=== PATIENT | male | born 1980 | race Caucasian/White ===

== ENCOUNTER 2018-06-16 18:09 | Emergency (ER) | payer OTHER ==
[2018-06-16 18:22] VITALS: RESP 16; TEMP 98.2
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
[2018-06-16 20:22] VITALS: BP 135/85; PULSE 78; O2SAT 98
--- NOTE | 2018-06-17 11:02 | RAD ---
Date of service: 06/16/2018 PROCEDURE: Cervical Spine Radiographs. HISTORY: Pain. COMPARISON: None. FINDINGS: BONES: There is normal alignment of the cervical vertebral bodies. There is straightening of the cervical spine with loss of normal cervical lordosis. Vertebral height is normal. Bone mineralization is normal. There is no acute fracture or traumatic anterior listhesis. The craniocervical junction is normal. The atlantoaxial joint normal. DISC SPACES: Normal. SOFT TISSUES: Normal. No prevertebral soft tissue swelling. OTHER FINDINGS: None. IMPRESSION: No acute fracture or traumatic anterior listhesis. Straightening of the cervical spine may be positional or related to muscle spasm.
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
== END 2018-06-16 20:21 | disposition home or self-care (01) ==
LOC: C.ER 18:09
DX: S16.1XXA Strain of muscle, fascia and tendon at neck level, initial encounter (principal); S40.012A Contusion of left shoulder, initial encounter; V49.9XXA Car occupant (driver) (passenger) injured in unspecified traffic accident, initial encounter